=== PATIENT | male | born 1990 | race Caucasian/White ===

== ENCOUNTER 2017-05-22 07:37 | Emergency (ER) | payer SELFPAY ==
[~2017-05-22] VITALS: Ht 170.2 cm; Wt 70.0 kg
[~2017-05-22 07:37] MED LIST: CUTI0.05 TOP; PERM5CRE TOP; Z.0.NO CURRENT MEDS
[2017-05-22 07:39] VITALS: BP 113/74; PULSE 69; RESP 14; TEMP 97.2; O2SAT 97
[2017-05-22] MEDS ORDERED: PERI0.126 SWISH-SPIT (08:03)
[2017-05-22] MEDS ORDERED: IBUP1TAB7 PO (08:03)
[2017-05-22] MEDS ORDERED: AMOX500T PO (08:03)
--- NOTE | 2017-05-22 08:04 | PD ---
HPI Chief Complaint: Oral / Dental Pain or Problem Time Seen by Provider: 07:52 Travel History International Travel<30 days: No Contact w/Intl Traveler<30days: No Traveled to known affect area: No History of Present Illness HPI 26-year-old male presents to the emergency Department with complaint of right upper tooth pain that started this morning. He said he broke his tooth while sleeping. Denies fever, vomiting. Denies sore throat, unusual drooling, difficulty swallowing. Has not taken any medication or tried any treatments to alleviate symptoms. Rates pain 10/10. Aching sensation. No known relieving or aggravating factors. Has not taken any medication or tried any treatments to alleviate symptoms. No primary care provider. No dentist. No known allergies. Denies significant past medical history. Has no other complaints. No other modifying factors or associated signs and symptoms. PFSH Past Medical History Diminished Hearing: Yes (SAYS "IT'S KIND OF ON AND OFF" NO RECENT TESTING) Past Surgical History Appendectomy: Yes (OVER A YEAR AGO) Social History Alcohol Use: Yes (DOES NOT GENERALLY DRINK MUCH. JUST AT THIS TIME ) Tobacco Use: Yes (5 CIGS PER DAY) Substance Use: Yes (OCCASIONAL MARIJUANA USE. DENIES ALL OTHER SUBSTANCES ) Allergies-Medications (Allergen,Severity, Reaction): Coded Allergies: No Known Allergies (Verified , 09/16/10) Reported Meds & Prescriptions Reported Meds & Active Scripts Active Amoxicillin 500 Mg Tab 500 Mg PO BID 10 Days Peridex Liq (Chlorhexidine Gluconate (Mouth) Liq) 0.12% Soln 15 Ml SWISH-SPIT BID 10 Days Ibuprofen 800 Mg Tab 800 Mg PO Q6HR PRN Elimite (Permethrin) 5 % Cr 60 Gm TOP DIRECTED PATIENT INSTRUCTIONS: THOROUGHLY MASSAGE ELIMITE (PERMETHRIN) 5% CREAM INTO THE SKIN FROM HEAD TO TOE COVERING ALL EXTERNAL BODY PARTS. THE CREAM SHOULD BE REMOVED BY WASHING (SHOWER OR BATH) 8 TO 14 HOURS AFTER APPLICATION. PATIENTS MAY EXPERIENCE ITCHING AFTER TREATMENT AND IS RARELY A SIGN OF TREATMENT FAILURE. Cutivate (Fluticasone Propionate) 0.05 % Cre 0.05 % TOP TID Reported No Current Meds (Miscellaneous Medication) Misc Review of Systems Except as stated in HPI: all other systems reviewed are Neg Physical Exam Narrative GENERAL: Well-nourished, well-developed male patient, in no acute distress; afebrile, nontoxic-appearing SKIN: Warm and dry. HEAD: Atraumatic. Normocephalic. No facial edema, erythema, tenderness on palpation. No lymphadenopathy. EYES: Pupils equal and round. No scleral icterus. No injection or drainage. ENT: Mucosa pink and moist. No erythema or exudates. No uvular edema. No uvular , palatal, or tonsillar deviation. Airway patent. EARS: Bilateral pinnae and external canals appear within normal limits. Bilateral tympanic membranes without erythema, dullness or perforation. MOUTH: Mucous membranes moist, no lesions, tongue and gums appear normal. Tooth #5 and 4 with tenderness on palpation; large decay and dental cavities; both teeth are decay almost to gum line. Surrounding gingiva is without erythema, edema, drainage. No obvious abscess noted. NECK: Trachea midline. No lymphadenopathy. CARDIOVASCULAR: Regular rate. RESPIRATORY: No accessory muscle use. GASTROINTESTINAL: Flat. MUSCULOSKELETAL: No obvious deformities. No clubbing. No cyanosis. No edema. NEUROLOGICAL: Awake and alert. Oriented 3. No obvious cranial nerve deficits. Motor grossly within normal limits. Normal speech. PSYCHIATRIC: Appropriate mood and affect; insight and judgment normal. Data Data Last Documented VS Vital Signs Date Time Temp Pulse Resp B/P (MAP) Pulse Ox O2 Delivery O2 Flow Rate FiO2 05/22/17 07:39 97.2 69 14 113/74 (87) 97 Orders Orders Ibuprofen (Motrin) (05/22/17 08:15) Ed Discharge Order (05/22/17 08:01) MDM Medical Decision Making Medical Screen Exam Complete: Yes Emergency Medical Condition: Yes Medical Record Reviewed: Yes Differential Diagnosis Dentalgia, dental cavities, dental abscess, gingivitis Narrative Course 26-year-old male with tooth #4 and 5 with large decay, dental cavities, and tenderness on palpation. No obvious abscess noted. No facial edema or erythema. Patient is afebrile and nontoxic-appearing. Denies fever, vomiting. She provided emergency information sheet for follow-up. Instructed patient to follow up with dentist. Ibuprofen administered prior to discharge. Ibuprofen, Peridex mouth rinse, Amoxicillin prescribed for home. Instructed patient to follow up with primary care provider. Patient verbalizes understanding and agreement with treatment plan. Patient is medically cleared and stable for discharge. Discussed reasons to return to the emergency department. Patient agrees with treatment plan. The patients vital signs are stable and the patient is stable for outpatient follow-up and treatment. Patient discharged home, stable and in no acute distress. Diagnosis Primary Impression: Tooth pain Additional Impression: Dental cavities Referrals: [facility] Primary Care Physician Patient Instructions: Dental Abscess (ED), Dental Caries (ED), General Instructions, Toothache (ED) Departure Forms: Tests/Procedures, Work Release Enter return to work date: May 23, 2017 Additional Instructions: Complete full course of antibiotics Ibuprofen or Tylenol as directed and as needed to reduce pain and inflammation Use Peridex as directed for oral hygiene Warm or cool compresses to the affected area Follow-up with dentist Follow-up with primary care provider Return to emergency department immediately with worsening of symptoms Med/Other Pt SpecificInfo: Prescription(s) given Scripts Amoxicillin (Amoxicillin) 500 Mg Tab 500 MG PO BID for Infection for 10 Days, #20 TAB 0 Refills Prov: Sharmila Canada 05/22/17 Chlorhexidine Gluconate (Mouth) Liq (Peridex Liq) 0.12% Soln 15 ML SWISH-SPIT BID for 10 Days, #300 ML 0 Refills Prov: Sharmila Candaa 05/22/17 Ibuprofen (Ibuprofen) 800 Mg Tab 800 MG PO Q6HR Y for PAIN, #30 TAB 0 Refills Prov: Sharmila Canada 05/22/17 Disposition: 01 DISCHARGE HOME Condition: Stable Sharmila Canada May 22, 2017 08:03
[2017-05-22] MEDS ORDERED: IBUPROFEN 800 MG TAB PO ONE (08:15)
== END 2017-05-22 08:45 | disposition home or self-care (01) ==
LOC: NEPD 07:37
DX: K08.89 Other specified disorders of teeth and supporting structures (principal); K02.9 Dental caries, unspecified; F17.210 Nicotine dependence, cigarettes, uncomplicated; F12.90 Cannabis use, unspecified, uncomplicated
CPT/HCPCS: 99283